=== PATIENT | male | born 1955 | race Caucasian/White ===

== ENCOUNTER 2016-11-04 14:20 | Emergency (ER) | payer OTHER ==
[~2016-11-04] VITALS: Ht 172.7 cm; Wt 81.6 kg
[2016-11-04 14:26] VITALS: BP 126/84
--- NOTE | 2016-11-04 14:30 | ED MVC/FALL/TRAUMA COMPLAINT ---
History of Present Illness General Chief Complaint: Fall Stated Complaint: PT FELL AND LANDED FACE DOWN ,NOSE,LIP Source: patient Exam Limitations: no limitations Vital Signs & Intake/Output Vital Signs & Intake/Output Vital Signs Date Time Temp Pulse Resp B/P B/P Pulse O2 O2 Flow FiO2 Mean Ox Delivery Rate 11/04 1426 96.4 70 18 126/84 94 Allergies Coded Allergies: Opioids-Meperidine and Related (NAUSEA AND DIZZY 11/04/16) Reconcile Medications Albuterol Sulfate (Ventolin Hfa) 90 MCG HFA.AER.AD 2 PUF INH Q6H PRN ASTHMA ( Reported) Dexlansoprazole (Dexilant) 60 MG CAP.DR.BP 1 CAP PO DAILY GI (Reported) Fluticasone-Salmeterol (Advair 100-50 Diskus) 100 MCG-50 MCG/DOSE BLST.W.DEV 1 PUF INH BID ASTHMA (Reported) Glucosa Chandler 2KCL/Chondroitin Chandler (Glucosamine & Chondroitin Cap) (Unknown Strength ) CAPSULE (Unknown Dose) PO DAILY SUPPLEMENT (Reported) Levothyroxine Sodium 75 MCG TABLET 1 TAB PO DAILY THYROID (Reported) Multivitamin (Multi-Day Vitamins) 1 EACH TABLET 1 TAB PO DAILY SUPPLEMENT ( Reported) Zap-3S/Dha/Epa/Fish Oil (Fish Oil 1,200 MG Softgel) (Unknown Strength) CAPSULE (Unknown Dose) PO DAILY SUPPLEMENT (Reported) Ranitidine HCl 300 MG TABLET 1 TAB PO PRN GI (Reported) Turmeric (Curcumin) (Unknown Strength) POWDER (Unknown Dose) PO DAILY SUPPLEMENT (Reported) Triage Note: PT WAS PLAYING BASKETBALL AND FELL HITTING HIS NOSE AND MOUTH ON WOODEN FLOOR. -LOC PT REPORTED LOTS OF BLEEDING NOSE. PT HAS SMALL LACS TO INSIDE OF LIP. BLEEDING CONTROLED AT TRIAGE. PT DENIES ANY BLOOD THINNERS. Triage Nurses Notes Reviewed? yes Onset: Abrupt Duration: constant Timing: single episode today Severity: moderate Severity Numbers: 5 Method of Injury: direct blow, fall, sports injury Loss of Consciousness: no loss of consciousness HPI: Patient is a 61-year-old male who presents emergency and that today while playing [employer] basketball patient was accidentally tripped when he fell for check in his face and nose to the pavement resulting in a mild skin abrasion to his nose and bleeding that was controlled prior to arrival. Patient does complain of 5/10 nasal bone tenderness and swelling area denies any loss of consciousness denies any headache denies any blurred vision neck pain back pain dizziness lightheadedness sensation Patient took Tylenol prior to arrival (KARINA RUEDA) Past History Travel History Traveled to [place] past 21 day No Medical History Any Pertinent Medical History? see below for history Respiratory: asthma Gastrointestinal: GERD Surgical History Surgical History: non-contributory Psychosocial History What is your primary language Bolivian Tobacco Use: Never used ETOH Use: occasional use Illicit Drug Use: denies illicit drug use Family History Hx Contributory? No (KARINA RUEDA) Review of Systems Review of Systems Constitutional: Reports: no symptoms. Eyes: Reports: no symptoms. Ears, Nose, Throat, Mouth: Reports: see HPI, nose pain, nose discharge, epistaxis. Respiratory: Reports: no symptoms. Cardiovascular: Reports: no symptoms. Gastrointestinal/Abdominal: Reports: no symptoms. Genitourinary: Reports: no symptoms. Musculoskeletal: Reports: no symptoms. Skin: Reports: see HPI. Neurological/Psychological: Reports: see HPI. All Other Systems: Reviewed and Negative (KARINA RUEDA) Physical Exam Physical Exam General Appearance: no apparent distress, alert, awake, comfortable Comments: Well-developed well-nourished person in no acute distress HEENT: , extraocular motion intact, no nystagmus. Pupils equally round and reactive to light and accommodation. External auditory canal and Tympanic membranes clear. Pharynx normal. No swelling or edema. No hemotympanum Neck: Supple, no lymphadenopathy, normal range of motion without pain or tenderness No central spinous tenderness Back: Nontender, no CVA tenderness. Cardiovascular: Regular rate and rhythms no murmurs rubs or gallops, normal JVP Respiratory: Chest nontender. No respiratory distress.breath sounds clear to auscultation bilaterally Abdomen: Soft, nontender nondistended, no appreciable organomegaly. Normal bowel sounds. No ascites Extremity: No edema, no calf tenderness to palpation, normal and equal pulses. Neuro: Alert oriented x3, motor sensory normal, cranial nerves II through XII grossly intact. Skin: No appreciable rash on exposed skin, skin is warm and dry. Psych: Mood and affect is normal, memory and judgment is normal. Diagram Head: 1) Noted minimal skin abrasions with moderate swelling and point tenderness noted Bilateral nares noted dried blood however patent 2) 5 mm non-gaping lip laceration NO active bleeding no swelling Core Measures ACS in differential dx? No Severe Sepsis Present: No Septic Shock Present: No (KARINA RUEDA) Progress Differential Diagnosis: C/T/L spine injury, ext injury, ICH, pelvis injury, pnemothorax, spinal cord injury, NASAL FX Plan of Care: Orders Procedure Date/time Status Regular Diet 11/04 D Active No loss of consciousness no basilar skull fracture signs cranial nerves intact no vomiting Patient denies any specific head strike or headaches. Patient does not EMERGENTLY warrant CT scan of head for rule out ICH at this time No osseous injury noted on where patient was symptomatically tender. (KARINA RUEDA) Diagnostic Imaging: Viewed by Me: Radiology Read. Radiology Impression: no fracture Comments: PATIENT: EMMA LIU PRESENT AGE: 61 PATIENT ACCOUNT NO: [id number] : 53 LOCATION: [facility] ORDERING PHYSICIAN: KARINA ALATORRE SERVICE DATE: 11/04/16 EXAM TYPE: RAD - XRY-NASAL BONES EXAMINATION: XR NASAL BONES CLINICAL INFORMATION: Direct blow to the nose. Fall. COMPARISON: None TECHNIQUE: 3 views of the nasal bones were obtained. FINDINGS: There are no fractures or dislocations. No bone, joint or soft tissue abnormality is demonstrated. Paranasal sinuses normally aerated. Orbits unremarkable. IMPRESSION: Normal nasal bones. DICTATED BY: LOIDA WEAVER MD DATE/TIME DICTATED:11/04/161554 (KARINA RUEDA) Departure Departure Disposition: HOME OR SELF CARE Condition: Stable Clinical Impression Primary Impression: Nasal contusion Secondary Impressions: Cut of lip, Epistaxis Referrals: LOIDA LY MD (PCP/Family) Additional Instructions: As discussed begin [id number] Motrin and/or Tylenol for pain and inflammation. Begin icing the area directly 20 minutes every 2 hours. If you note signs of infection such as redness, WORSENING pains, swelling, discharge return to emergency room. If symptoms worsen return to emergency room. Follow- up with your doctor in 1 week if no better Departure Forms: Customer Survey General Discharge Information (KARINA RUEDA) PA/UNDERPRESSER HAND Co-Sign Statement Statement: ED Attending supervision documentation- x I saw and evaluated the patient. I have also reviewed all the pertinent lab results and diagnostic results. I agree with the findings and the plan of care as documented in the PA's/UNDERPRESSER HAND's documentation. [] I have reviewed the ED Record and agree with the PA's/UNDERPRESSER HAND's documentation. [] Additions or exceptions (if any) to the PAs/UNDERPRESSER HAND's note and plan are summarized below: [] (ROCIO ANAYA,CORY)
[2016-11-04] MEDS ORDERED: LEVOTHYROXINE75 MCG PO (14:33)
[2016-11-04] MEDS ORDERED: VENTOLIN HFA18 GM INH (14:33)
[2016-11-04] MEDS ORDERED: ADVAIR 100-501 EACH INH (14:33)
[2016-11-04] MEDS ORDERED: DEXILANT60 M1 PO (14:33)
[2016-11-04] MEDS ORDERED: MULTI-DAY VITA1 EACH PO (14:34)
[2016-11-04] MEDS ORDERED: RANITIDINE HCL300 M1 PO (14:34)
[2016-11-04] MEDS ORDERED: GLUCOSAMINE &1 EACH PO (14:34)
[2016-11-04] MEDS ORDERED: CURCUMIN1 GM PO (14:34)
[2016-11-04] MEDS ORDERED: FISH OIL 1,2001 EAC2 PO (14:35)
--- NOTE | 2016-11-04 15:59 | RADIOLOGY REPORT ---
EXAMINATION: XR NASAL BONES CLINICAL INFORMATION: Direct blow to the nose. Fall. COMPARISON: None TECHNIQUE: 3 views of the nasal bones were obtained. FINDINGS: There are no fractures or dislocations. No bone, joint or soft tissue abnormality is demonstrated. Paranasal sinuses normally aerated. Orbits unremarkable. IMPRESSION: Normal nasal bones.
== END 2016-11-04 16:19 ==
LOC: ERH 14:20
DX: S01.511A Laceration without foreign body of lip, initial encounter (principal); S00.33XA Contusion of nose, initial encounter; R04.0 Epistaxis; W18.09XA Striking against other object with subsequent fall, initial encounter; Y93.67 Activity, basketball; Y92.310 Basketball court as the place of occurrence of the external cause
CPT/HCPCS: 70160